=== PATIENT | female | born 1980 | race African-American/Black ===

== ENCOUNTER 2016-10-27 12:22 | Emergency (ER) | payer MEDICAID ==
[~2016-10-27] VITALS: Ht 165.1 cm; Wt 68.9 kg
--- NOTE | 2016-10-27 13:02 | Emergency Room Report ---
History of Present Illness General Chief Complaint: Female Urogenital Problems Source: Patient Present Illness HPI 36 y/o female c/o eval for possible UTI x 1 day. States that for the past 1 day patient has had increased urinary odor and cloudy urine assoc with increase in urinary frequency. States she had intercourse 2 days ago and did not have postcoital voiding and fell asleep. Patient has hx of UTI 1 year ago and denies any provoking or modifying factors. Patient denies any pelvic / abd pain, flank pain, fever, nausea, fever, vag discharge, or abnormal vaginal bleeding. Allergies: Coded Allergies: No Known Allergies (Unverified , 10/27/16) Patient History Past Medical History: see triage record Past Surgical History: none Pertinent Family History: none Last Menstrual Period: 10/17/2016 Now: No Immunizations: UTD Reviewed Nursing Documentation: PMH: Agreed, PSxH: Agreed Nursing Documentation-PMH Past Medical History: No Stated History Review of Systems All Other Systems: negative except mentioned in HPI Physical Exam Vital Signs Date Time Temp Pulse Resp B/P Pulse Ox O2 Delivery O2 Flow Rate FiO2 10/27/16 12:40 98.4 89 14 126/78 100 Room Air Sp02 EP Interpretation: reviewed, normal General Appearance: no apparent distress, alert, GCS 15, non-toxic Head: normocephalic, atraumatic Eyes: bilateral eye normal inspection ENT: normal ENT inspection Respiratory: chest non-tender, lungs clear, normal breath sounds, speaking full sentences Cardiovascular #1: regular rate, rhythm, no edema Gastrointestinal: non tender, soft Genitourinary: no CVA tenderness Musculoskeletal: normal inspection, gait/station normal Neurologic: alert, oriented x3, responsive, motor strength/tone normal, sensory intact, speech normal Psychiatric: judgement/insight normal, memory normal, mood/affect normal Skin: normal color, no rash, warm/dry, well hydrated Medical Decision Making PA Attestation Dr. Peña my supervising physician with whom patient management has been discussed with. ER Course Pt. presents to the ED c/o UTI Ddx considered but are not limited to UTI, STI, Kidney Stone, Pyelonephritis, Vaginitis Vital signs: are WNL, pt. is afebrile H&PE are most consistent with UTI ORDERS: UA ED INTERVENTIONS: none required at this time. DISCHARGE: At this time pt. is stable for d/c to home. Will provide printed patient care instructions, and any necessary prescriptions. Care plan and follow up instructions have been discussed with the patient prior to discharge. Laboratory Tests Test 10/27/16 12:47 Urine Color Pale yellow Urine Appearance Cloudy Urine pH 6 (4.5-8.0) Urine Specific [place] 1.015 (1.005-1.035) Urine Protein Negative (NEGATIVE) Urine Glucose (UA) Negative (NEGATIVE) Urine Ketones Negative (NEGATIVE) Urine Occult Blood 2+ (NEGATIVE) H Urine Nitrite Negative (NEGATIVE) Urine Bilirubin Negative (NEGATIVE) Urine Urobilinogen Normal MG/DL (0.0-1.0) Urine Leukocyte Esterase 3+ (NEGATIVE) H Urine RBC 2-4 /HPF (0 - 2) H Urine WBC 20-30 /HPF (0 - 2) H Urine Squamous Epithelial Cells Few /LPF (NONE/OCC) Urine Bacteria Few /HPF (NONE) Last Vital Signs Date Time Temp Pulse Resp B/P Pulse Ox O2 Delivery O2 Flow Rate FiO2 10/27/16 12:40 98.4 89 14 126/78 100 Room Air Disposition: HOME, SELF-CARE Condition: Stable Scripts Nitrofurantoin Monohyd/M-Cryst* (MACROBID 100 MG*) 100 Mg Capsule 100 MG ORAL EVERY 12 HOURS for 7 Days, #14 CAP Prov: CHARLENE ROGERS 10/27/16 Referrals: [facility],REFERRING (PCP) Patient Instructions: Urinary Tract Infection Additional Instructions: Take medication as directed. Patient informed that Azo (Pyridium) will make your urine turn orange and to use for urinary pain. Drink plenty of cranberry juice and have some pelvic rest. Return to clinic or PCP sooner if symptoms worsen or do not improve. Go to ER if you experience any adverse reactions to medication or if you start developing back pain or fever. CHARLENE ROGERS Oct 27, 2016 13:02
[2016-10-27 13:56] LABS: APPEARANCE,URINE CLOUDY; KETONES,URINE NEGATIVE (NEGATIVE); LEUKOCYTE ESTERASE ,URINE 3+ (NEGATIVE); NITRITE,URINE NEGATIVE (NEGATIVE); PH,URINE 6 (4.5-8.0); PROTEIN,URINE NEGATIVE (NEGATIVE); UROBILINOGEN,URINE NORMAL MG/DL (0.0-1.0)
[2016-10-27 14:08] LABS: BACTERIA,URINE FEW /HPF; SQUAMOUS EPITHELIAL CELL,UR FEW /LPF (NONE/OCC); WBC,URINE 20-30 /HPF (0 - 2)
[2016-10-27] MEDS ORDERED: NITROFURANTOIN100 M2 ORAL (14:09)
[2016-10-27 14:10] VITALS: BP 125/87
[2016-10-27 14:20] VITALS: BP 125/87
== END 2016-10-27 14:20 | disposition home or self-care (01) ==
LOC: EMR 12:49
DX: R35.0 Frequency of micturition (principal)
CPT/HCPCS: 81003; 87086; 87181; 99283